=== PATIENT | male | born 1965 | race African-American/Black ===

== ENCOUNTER 2019-01-14 12:39 | Inpatient (IN) | payer OTHER ==
[2019-01-14 15:58] VITALS: BMI 24.7
[2019-01-14] MEDS ORDERED: MAG HYDROX/AL HYDROX/SIMETH 30 ML UNIT-DOSE CUP PO PRN (17:26)
[2019-01-14] MEDS ORDERED: MAGNESIUM HYDROX 2400MG/30ML ORAL SUSPENSION 30 ML CUP PO PRN (17:26)
[2019-01-14] MEDS ORDERED: IBUPROFEN 400 MG TABLET (FP) PO PRN (17:26)
[2019-01-14] MEDS ORDERED: MELATONIN 5 MG TABLETS PO PRN (17:26)
[2019-01-14] MEDS ORDERED: hydrOXYzine PAMOATE 25 MG CAPSULE (FP) PO PRN (17:26)
[2019-01-14] MEDS ORDERED: ACETAMINOPHEN 325 MG TABLET (FP) PO PRN ×2 (17:26)
[2019-01-14] MEDS ORDERED: BISMUTH SUBSALICYLATE 524 MG/30 ML UD PO PRN (17:26)
[2019-01-14] MEDS ORDERED: MENTHOL/PHENOL 1 EACH UD MM PRN (17:26)
[2019-01-14] MEDS ORDERED: MAGNESIUM CITRATE 300 ML BOTTLE PO PRN (17:26)
[2019-01-14] MEDS ORDERED: METHOCARBAMOL 500 MG TABLET PO PRN (17:26)
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
[2019-01-14] MEDS ORDERED: chlordiazePOXIDE HCL 10 MG CAPSULE PO PRN (18:03)
[2019-01-14] MEDS: valACYclovir HCL 500 MG TABLET (FP) PO SCH (19:02)
[2019-01-14] MEDS: OXYMETAZOLINE 0.05% NASAL SOLUTION 15 ML BOTTLE NS SCH (22:42)
[2019-01-14] MEDS: QUEtiapine FUMARATE 50 MG TABLET PO SCH (22:43)
[2019-01-14] MEDS: THIAMINE HCL 100 MG TABLET (FP) PO SCH (22:43)
[2019-01-14] MEDS: chlordiazePOXIDE HCL 25 MG CAPSULE PO SCH (22:43)
[2019-01-15] MEDS: chlordiazePOXIDE HCL 25 MG CAPSULE PO SCH ×2 (06:29→13:17)
[2019-01-15] MEDS: AMOX TR/POT CLAV 875MG/125MG TABLETS (FP) PO SCH ×2 (07:08→17:37)
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
[2019-01-15] MEDS: valACYclovir HCL 500 MG TABLET (FP) PO SCH (10:25)
[2019-01-15] MEDS: OXYMETAZOLINE 0.05% NASAL SOLUTION 15 ML BOTTLE NS SCH ×2 (10:25→22:27)
[2019-01-15] MEDS: PRENATAL VITAMINS W/ FOLIC ACID TABLET (FP) PO SCH (10:25)
[2019-01-15] MEDS: predniSONE 20 MG TABLET (UD) PO SCH (10:25)
[2019-01-15] MEDS: EMTRICITABINE/TENOFOV ALAFENAM (DESCOVY) TABLET PO SCH (10:26)
[2019-01-15] MEDS: RITONAVIR 100 MG TABLET PO SCH (10:26)
[2019-01-15] MEDS: DARUNAVIR ETHANOLATE 800 MG TAB PO SCH (10:27)
[2019-01-15] MEDS: busPIRone HCL 5 MG TABLET PO SCH (10:27)
[2019-01-15] MEDS: NICOTINE 14 MG/24 HOURS TOPICAL PATCH TD SCH (10:27)
[2019-01-15] MEDS: PSEUDOEPHEDRINE HCL 30 MG TABLET PO SCH (11:05)
[2019-01-15] MEDS ORDERED: PNEUMOC 13-VAL CONJ-DIP CRM/PF 0.5 ML DISP.SYRIN IM ONE (12:00)
[2019-01-15 12:30] LABS: ALBUMIN 3.1 g/dl (3.4-5.0); ALK PHOS 66 U/L (45-117); ANION GAP 6 MMOL/L (8-16); BILIRUBIN,TOTAL 0.6 mg/dL (0.2-1); BLOOD UREA NITROGEN 13 mg/dL (7-18); CALCIUM 9.1 mg/dL (8.5-10.1); CHLORIDE 105 mmol/L (98-107); CO2 27 mmol/L (21-32); CREATININE 0.7 mg/dL (0.55-1.3); GLUCOSE,RANDOM 110 mg/dL (74-106); POTASSIUM 3.6 mmol/L (3.5-5.1); SGOT/AST 52 U/L (15-37); SGPT/ALT 52 U/L (13-61); SODIUM 138 mmol/L (136-145); TOT PROT 7.7 g/dl (6.4-8.2)
[2019-01-15 12:44] LABS: HEMATOCRIT 41.4 % (35.4-49); HEMOGLOBIN 13.8 GM/dL (11.7-16.9); MCH 31.4 pg (25.7-33.7); MCHC 33.2 g/dl (32.0-35.9); MEAN CELL VOLUME 94.4 fl (80-96); MEAN PLT VOLUME 9.8 fl (7.5-11.1); PLATELET COUNT 187 K/MM3 (134-434); RBC 4.39 M/mm3 (4.00-5.60); RDW 14.7 % (11.9-15.9); WHITE BLOOD COUNT 10.4 K/mm3 (4.0-10.0)
[2019-01-15 16:02] LABS: EPI CELLS 28.1 /HPF (0-5/HPF); URINE APPEARANCE CLOUDY; URINE BACTERIA 7.1 /hpf (NEGATIVE); URINE BILIRUBIN 1+ (NEGATIVE); URINE CASTS 37 /lpf (0-8); URINE COLOR DK YELLOW; URINE GLUCOSE (UA) NEGATIVE (NEGATIVE); URINE KETONE TRACE (NEGATIVE); URINE LEUK ESTERASE 2+ (NEGATIVE); URINE NITRITE POSITIVE (NEGATIVE); URINE PROTEIN 1+ (NEGATIVE); URINE RBC 8 /hpf (0-4); URINE WBC 27 /hpf (0-5)
[2019-01-15] MEDS: QUEtiapine FUMARATE 50 MG TABLET PO SCH (22:25)
[2019-01-15] MEDS: chlordiazePOXIDE 5 MG CAPSULE PO SCH (22:25)
[2019-01-15] MEDS: THIAMINE HCL 100 MG TABLET (FP) PO SCH (22:25)
[2019-01-16] MEDS: chlordiazePOXIDE 5 MG CAPSULE PO SCH (06:09)
[2019-01-16] MEDS: AMOX TR/POT CLAV 875MG/125MG TABLETS (FP) PO SCH (08:15)
[2019-01-16 09:03] VITALS: BP 107/71; PULSE 73; TEMP 96.3
[2019-01-16] MEDS: OXYMETAZOLINE 0.05% NASAL SOLUTION 15 ML BOTTLE NS SCH (09:50)
[2019-01-16] MEDS: valACYclovir HCL 500 MG TABLET (FP) PO SCH (09:50)
[2019-01-16] MEDS: predniSONE 20 MG TABLET (UD) PO SCH (09:50)
[2019-01-16] MEDS: PRENATAL VITAMINS W/ FOLIC ACID TABLET (FP) PO SCH (09:50)
--- NOTE | 2019-01-16 09:50 | DS ---
[facility] Detox Discharge Summary Admission Date: 01/14/19 Discharge Date: 01/16/19 - History Present History: Alcohol Dependence Additional Comments: 53 years old male admitted on 01/14/19 for alcohol withdrawal stabilization feeling better today preferring to begin alcohol rehab today [facility] the [facility] scheduled to be discharged tomorrow, patient preferring to leave the detox facility today to prepare himself for alcohol rehab Pertinent Past History: bring in medication list and lab report to aftercare appointment strong recommend the patient return to [facility] admission - Physical Exam Results Vital Signs: Vital Signs Temperature 96.3 F L 01/16/19 09:02 Pulse Rate 73 01/16/19 09:02 Respiratory Rate 18 01/16/19 09:02 Blood Pressure 107/71 01/16/19 09:02 O2 Sat by Pulse Oximetry (%) Pertinent Admission Physical Exam Findings: alcohol withdrawal sx Laboratory Last Values WBC 10.4 K/mm3 (4.0-10.0) H 01/15/19 07:30 RBC 4.39 M/mm3 (4.00-5.60) 01/15/19 07:30 Hgb 13.8 GM/dL (11.7-16.9) 01/15/19 07:30 Hct 41.4 % (35.4-49) 01/15/19 07:30 MCV 94.4 fl (80-96) 01/15/19 07:30 MCH 31.4 pg (25.7-33.7) 01/15/19 07:30 MCHC 33.2 g/dl (32.0-35.9) 01/15/19 07:30 RDW 14.7 % (11.9-15.9) 01/15/19 07:30 Plt Count 187 K/MM3 (134-434) 01/15/19 07:30 MPV 9.8 fl (7.5-11.1) 01/15/19 07:30 Sodium 138 mmol/L (136-145) 01/15/19 07:30 Potassium 3.6 mmol/L (3.5-5.1) 01/15/19 07:30 Chloride 105 mmol/L (98-107) 01/15/19 07:30 Carbon Dioxide 27 mmol/L (21-32) 01/15/19 07:30 Anion Gap 6 MMOL/L (8-16) L 01/15/19 07:30 BUN 13 mg/dL (7-18) 01/15/19 07:30 Creatinine 0.7 mg/dL (0.55-1.3) 01/15/19 07:30 Creat Clearance w eGFR 118.43 (>60) 01/15/19 07:30 Random Glucose 110 mg/dL (74-106) H 01/15/19 07:30 Calcium 9.1 mg/dL (8.5-10.1) 01/15/19 07:30 Total Bilirubin 0.6 mg/dL (0.2-1) 01/15/19 07:30 AST 52 U/L (15-37) H 01/15/19 07:30 ALT 52 U/L (13-61) 01/15/19 07:30 Alkaline Phosphatase 66 U/L (45-117) 01/15/19 07:30 Total Protein 7.7 g/dl (6.4-8.2) 01/15/19 07:30 Albumin 3.1 g/dl (3.4-5.0) L 01/15/19 07:30 Urine Color Dk yellow 01/15/19 10:00 Urine Appearance Cloudy 01/15/19 10:00 Urine pH 6.0 (5.0-8.0) 01/15/19 10:00 Ur Specific [place] 1.023 (1.010-1.035) 01/15/19 10:00 Urine Protein 1+ (NEGATIVE) H 01/15/19 10:00 Urine Glucose (UA) Negative (NEGATIVE) 01/15/19 10:00 Urine Ketones Trace (NEGATIVE) H 01/15/19 10:00 Urine Blood Trace (NEGATIVE) 01/15/19 10:00 Urine Nitrite Positive (NEGATIVE) H 01/15/19 10:00 Urine Bilirubin 1+ (NEGATIVE) H 01/15/19 10:00 Urine Urobilinogen 2.0 mg/dL (0.2-1.0) 01/15/19 10:00 Ur Leukocyte Esterase 2+ (NEGATIVE) H 01/15/19 10:00 Urine WBC (Auto) 27 /hpf (0-5) 01/15/19 10:00 Urine RBC (Auto) 8 /hpf (0-4) 01/15/19 10:00 Urine Casts (Auto) 37 /lpf (0-8) 01/15/19 10:00 U Pathogenic Cast Auto None /lpf (NEGATIVE) 01/15/19 10:00 U Epithel Cells (Auto) 28.1 /HPF (0-5/HPF) 01/15/19 10:00 U Sm Round Cell (Auto) None 01/15/19 10:00 Urine Bacteria (Auto) 7.1 /hpf (NEGATIVE) 01/15/19 10:00 RPR Titer Nonreactive (NONREACTIVE) 01/15/19 07:30 lab noted patient agrees to return to his infectious disease specialist for augmentin - Treatment Hospital Course: Detox Protocol Followed, Detoxed Safely, Responded well, Discharged Condition Good, Rehab Referral Accepted Patient has Accepted a Rehab Referral to: infectious disease specialist - Medication Discharge Medications: Ambulatory Orders Quetiapine Fumarate [Seroquel -] 50 mg PO HS 10/27/12 Valacyclovir HCl [Valtrex -] 1 grams PO DAILY 10/27/12 Acetaminophen [Tylenol] 500 mg PO TID 01/14/19 Ascorbate Calcium [Vitamin C] 500 mg PO DAILY 01/14/19 Augmentin 875-125 Tablet 1 tablet PO BID 01/14/19 Buspirone HCl [Buspar -] 5 mg PO BID 01/14/19 Daily Vitamin Formula-Iron Tab 1 tablet PO DAILY 01/14/19 Darunavir Ethanolate [Prezista] 800 mg PO DAILY 01/14/19 Emtricitabine/Tenofov Alafenam [Descovy 200-25 mg Tablet (Nf)] 1 mg PO DAILY 03/28 Ibuprofen 600 mg PO PRN 01/14/19 Omeprazole 20 mg PO BID 01/14/19 Prednisolone 20 mg PO DAILY 01/14/19 Pseudoephedrine HCl [Sudogest] 30 mg PO 01/14/19 Ritonavir [Norvir -] 100 mg PO DAILY 01/14/19 - Diagnosis (1) Alcohol dependence with uncomplicated withdrawal Status: Acute (2) Cellulitis Status: Acute Qualifiers: Site of cellulitis: face Qualified Code(s): L03.211 - Cellulitis of face (3) HIV (human immunodeficiency virus infection) Status: Chronic Qualifiers: HIV symptom status: asymptomatic Qualified Code(s): Z21 - Asymptomatic human immunodeficiency virus [HIV] infection status (4) Positive PPD Status: Resolved - AMA Did Patient Leave Against Medical Advice: No
[2019-01-16] MEDS: busPIRone HCL 5 MG TABLET PO SCH (09:51)
[2019-01-16] MEDS: DARUNAVIR ETHANOLATE 800 MG TAB PO SCH (09:51)
[2019-01-16] MEDS: RITONAVIR 100 MG TABLET PO SCH (09:51)
[2019-01-16] MEDS: EMTRICITABINE/TENOFOV ALAFENAM (DESCOVY) TABLET PO SCH (09:52)
[2019-01-16] MEDS: NICOTINE 14 MG/24 HOURS TOPICAL PATCH TD SCH (09:52)
[2019-01-16] MEDS ORDERED: chlordiazePOXIDE HCL 10 MG CAPSULE PO PRN (21:00)
[2019-01-16] MEDS ORDERED: chlordiazePOXIDE HCL 10 MG CAPSULE PO SCH (21:00)
== END 2019-01-16 10:11 | disposition home or self-care (01) | DRG 775 ==
LOC: YASAS 12:39 → Y3N 18:30
PROVIDERS: ADMIT Surgery; ATTEND Surgery
PROC: HZ2ZZZZ Detoxification Services for Substance Abuse Treatment (ICD-10-PCS; principal; 2019-01-14)
DX: F10.230 Alcohol dependence with withdrawal, uncomplicated (principal); Z21 Asymptomatic human immunodeficiency virus [HIV] infection status; L03.211 Cellulitis of face; R76.11 Nonspecific reaction to tuberculin skin test without active tuberculosis; S05.8X2A Other injuries of left eye and orbit, initial encounter
CPT/HCPCS: 36415; 80053; 81003; 85027; 86593; 90670

== ENCOUNTER 2024-06-02 16:29 | Inpatient (IN) | payer OTHER ==
[2024-06-02 17:33] VITALS: BMI 24.3
[2024-06-02] MEDS ORDERED: NALOXONE (NARCAN) HCL 4 MG/0.1 ML SPRAY NS PRN (19:15)
[2024-06-02] MEDS ORDERED: POLYETHYLENE GLYCOL (HEALTHYLAX) 3350 17 GM PACKET PO PRN (19:15)
[2024-06-02] MEDS ORDERED: NICOTINE POLACRILEX 2 MG GUM BUC PRN (19:15)
[2024-06-02] MEDS ORDERED: IBUPROFEN 400 MG TABLET (FP) PO PRN (19:15)
[2024-06-02] MEDS ORDERED: guaiFENesin 600 MG TABLET.ER (FP) PO PRN (19:15)
[2024-06-02] MEDS ORDERED: LOPERAMIDE HCL 2 MG CAPSULE PO PRN (19:15)
[2024-06-02] MEDS ORDERED: IBUPROFEN 600 MG TABLET (FP) PO PRN (19:15)
[2024-06-02] MEDS ORDERED: MAGNESIUM HYDROX 2400MG/30ML ORAL SUSPENSION 30 ML CUP PO PRN (19:15)
[2024-06-02] MEDS ORDERED: BENZOCAINE/MENTHOL (CHLORASEPTIC ) LOZENGE MM PRN (19:15)
[2024-06-02] MEDS ORDERED: BENZONATATE 200 MG CAPSULE PO PRN (19:15)
[2024-06-02] MEDS ORDERED: BISMUTH SUBSALICYLATE 524 MG/30 ML PO PRN (19:15)
[2024-06-02] MEDS ORDERED: ONDANSETRON *ODT* 4 MG TABLET SL PRN (19:15)
[2024-06-02] MEDS ORDERED: ACETAMINOPHEN 325 MG TABLET (FP) PO PRN (19:15)
[2024-06-02] MEDS ORDERED: DICYCLOMINE HCL 10 MG CAPSULE PO PRN (19:15)
[2024-06-02] MEDS ORDERED: NALOXONE HCL 0.4 MG/ML VIAL IM PRN (19:15)
[2024-06-02] MEDS ORDERED: MAG HYDROX/AL HYDROX/SIMETH 30 ML UNIT-DOSE CUP PO PRN (19:15)
[2024-06-02] MEDS: THIAMINE 100 MG TABLET PO SCH (21:16)
[2024-06-02] MEDS: METHOCARBAMOL 500 MG TABLET PO PRN (21:16)
[2024-06-02] MEDS: hydrOXYzine PAMOATE 25 MG CAPSULE (FP) PO PRN (21:16)
[2024-06-02] MEDS: MELATONIN 5 MG TABLETS PO SCH (21:16)
[2024-06-03] MEDS: PRENATAL VITAMINS W/ FOLIC ACID TABLET (FP) PO SCH (09:03)
[2024-06-03] MEDS: NICOTINE 21 MG/24 HOURS TOPICAL PATCH TD SCH (09:05)
[2024-06-03 13:49] LABS: HEMATOCRIT 44.6 % (35.4-49); HEMOGLOBIN 14.8 GM/dL (11.7-16.9); MCH 30.9 pg (25.7-33.7); MCHC 33.3 g/dl (32.0-35.9); MEAN CELL VOLUME 92.8 fl (80-96); MEAN PLT VOLUME 8.9 fl (7.5-11.1); PLATELET COUNT 214 10^3/uL (134-434); WHITE BLOOD COUNT 7.3 K/mm3 (4.0-10.0)
[2024-06-03 13:55] LABS: CHLORIDE 109 mmol/L (98-107); POTASSIUM 3.9 mmol/L (3.5-5.1); SODIUM 143 mmol/L (136-145)
[2024-06-03 13:58] LABS: ALBUMIN 3.6 g/dl (3.4-5.0); ANION GAP 3 mmol/L (4-13); CALCIUM 9.4 mg/dL (8.5-10.1); CO2 31 mmol/L (21-32); GLUCOSE,RANDOM 87 mg/dL (74-106)
[2024-06-03 13:59] LABS: BLOOD UREA NITROGEN 15.4 mg/dL (7-18)
[2024-06-03 14:01] LABS: CREATININE 0.8 mg/dL (0.55-1.3)
[2024-06-03 14:02] LABS: SGOT/AST 14 U/L (15-37); SGPT/ALT 15 U/L (13-61)
[2024-06-03 14:03] LABS: BILIRUBIN,TOTAL 0.3 mg/dL (0.2-1); TOT PROT 7.8 g/dl (6.4-8.2)
[2024-06-03 14:04] LABS: ALK PHOS 68 U/L (45-117)
[2024-06-03] MEDS: BICTEGRAV/EMTRICIT/TENOFOV (BIKTARVY) 50-200-25 MG TABLET PO SCH (15:47)
[2024-06-03] MEDS: valACYclovir HCL 500 MG TABLET (FP) PO SCH (15:47)
[2024-06-03] MEDS: QUEtiapine FUMARATE 50 MG TABLET PO SCH (21:49)
[2024-06-04] MEDS ORDERED: RITONAVIR 100 MG TABLET PO SCH (12:15)
[2024-06-04] MEDS ORDERED: EMTRICITABINE/TENOFOV ALAFENAM (DESCOVY) TABLET PO SCH (12:15)
[2024-06-04] MEDS ORDERED: DARUNAVIR ETHANOLATE 800 MG TAB PO SCH (12:15)
[2024-06-04] MEDS: PANTOPRAZOLE 20 MG TABLET PO SCH (12:29)
[2024-06-04 12:43] VITALS: TEMP 97.6
[2024-06-04 17:06] VITALS: BP 135/84; PULSE 68; RESP 18
== END 2024-06-04 18:47 | disposition other institution (70) | DRG 774 ==
LOC: YASAS 16:29 → Y3N 19:26
PROVIDERS: ADMIT Allergy & Immunology; ATTEND Surgery
PROC: HZ2ZZZZ Detoxification Services for Substance Abuse Treatment (ICD-10-PCS; principal; 2024-06-02)
DX: F10.230 Alcohol dependence with withdrawal, uncomplicated (principal); F14.20 Cocaine dependence, uncomplicated; F12.20 Cannabis dependence, uncomplicated; F17.210 Nicotine dependence, cigarettes, uncomplicated; F31.9 Bipolar disorder, unspecified; F41.9 Anxiety disorder, unspecified; Z21 Asymptomatic human immunodeficiency virus [HIV] infection status; Z79.899 Other long term (current) drug therapy; Z86.11 Personal history of tuberculosis
CPT/HCPCS: 36415; 71046-TC-FY; 80053; 80305; 80307; 85027; 86593; 86780; 87811; 93005; 93010

== ENCOUNTER 2024-06-04 19:19 | Inpatient (IN) | payer OTHER ==
[2024-06-05] MEDS ORDERED: IBUPROFEN 400 MG TABLET (FP) PO PRN (01:09)
[2024-06-05] MEDS ORDERED: NALOXONE HCL 0.4 MG/ML VIAL IVPUSH PRN (01:09)
[2024-06-05] MEDS ORDERED: guaiFENesin 600 MG TABLET.ER (FP) PO PRN (01:09)
[2024-06-05] MEDS ORDERED: IBUPROFEN 600 MG TABLET (FP) PO PRN (01:09)
[2024-06-05] MEDS ORDERED: BENZOCAINE/MENTHOL (CHLORASEPTIC ) LOZENGE MM PRN (01:09)
[2024-06-05] MEDS ORDERED: METHOCARBAMOL 500 MG TABLET PO PRN (01:09)
[2024-06-05] MEDS ORDERED: NALOXONE (NARCAN) HCL 4 MG/0.1 ML SPRAY NS PRN (01:09)
[2024-06-05] MEDS ORDERED: BENZONATATE 200 MG CAPSULE PO PRN (01:09)
[2024-06-05] MEDS ORDERED: MAGNESIUM HYDROX 2400MG/30ML ORAL SUSPENSION 30 ML CUP PO PRN (01:09)
[2024-06-05] MEDS ORDERED: LOPERAMIDE HCL 2 MG CAPSULE PO PRN (01:09)
[2024-06-05] MEDS: PRENATAL VITAMINS W/ FOLIC ACID TABLET (FP) PO SCH (10:17)
[2024-06-05] MEDS: NICOTINE 14 MG/24 HOURS TOPICAL PATCH TD SCH ×2 (10:17→17:05)
[2024-06-05] MEDS: NALTREXONE HCL 50 MG TABLET PO ONE (17:04)
[2024-06-05] MEDS: BICTEGRAV/EMTRICIT/TENOFOV (BIKTARVY) 50-200-25 MG TABLET PO SCH (17:05)
[2024-06-05] MEDS: THIAMINE 100 MG TABLET PO SCH (21:45)
[2024-06-05] MEDS: PANTOPRAZOLE 20 MG TABLET PO SCH (21:45)
[2024-06-05] MEDS: MELATONIN 5 MG TABLETS PO SCH (21:45)
[2024-06-05] MEDS: BACLOFEN 10 MG TABLET (FP) PO SCH (21:45)
[2024-06-06] MEDS: NALTREXONE HCL 50 MG TABLET PO SCH (10:08)
[2024-06-06] MEDS: valACYclovir HCL 500 MG TABLET (FP) PO SCH (10:10)
[2024-06-06] MEDS: QUEtiapine FUMARATE 50 MG TABLET PO SCH (21:58)
[2024-06-07] MEDS: ACETAMINOPHEN 325 MG TABLET (FP) PO PRN (16:54)
[2024-06-12] MEDS: BICTEGRAV/EMTRICIT/TENOFOV (BIKTARVY) 50-200-25 MG TABLET PO SCH (06:07)
[2024-06-13] MEDS: NICOTINE POLACRILEX 2 MG GUM BC PRN (10:19)
[2024-06-13] MEDS: BACLOFEN 10 MG TABLET (FP) PO SCH (13:10)
[2024-06-15] MEDS: NICOTINE POLACRILEX 4 MG GUM BUC PRN (10:24)
[2024-06-16] MEDS: NICOTINE 21 MG/24 HOURS TOPICAL PATCH TD SCH (10:14)
[2024-06-18] MEDS: hydrOXYzine PAMOATE 25 MG CAPSULE (FP) PO PRN (21:45)
[2024-06-19] MEDS: BACLOFEN 10 MG TABLET (FP) PO SCH (21:34)
[2024-06-19] MEDS: POLYETHYLENE GLYCOL (HEALTHYLAX) 3350 17 GM PACKET PO PRN (21:37)
[2024-06-20 06:51] VITALS: RESP 18
[2024-06-21] MEDS: MAG HYDROX/AL HYDROX/SIMETH 30 ML UNIT-DOSE CUP PO PRN (06:44)
[2024-06-23 07:14] VITALS: BP 132/85; PULSE 71; TEMP 97.9
[2024-06-23] MEDS: NALOXONE (NYS OPIOID OVERDOSE PROGRAM) 4 MG/0.1 ML SPRAY NS PRN (09:33)
[2024-06-23] MEDS: NALTREXONE MICROSPHERES (VIVITROL) 380 MG DISP.SYRIN IM ONE (09:55)
[2024-06-24] MEDS ORDERED: NALTREXONE MICROSPHERES (VIVITROL) 380 MG DISP.SYRIN IM ONE ×2 (10:00)
== END 2024-06-23 10:40 | disposition home or self-care (01) | DRG 772 ==
LOC: YASAS 19:19 → Y5N 19:27
PROVIDERS: ADMIT Psychiatry & Neurology Pain Medicine; ATTEND Psychiatry & Neurology Pain Medicine
PROC: HZ42ZZZ Group Counseling for Substance Abuse Treatment, Cognitive-Behavioral (ICD-10-PCS; principal; 2024-06-04)
DX: F10.20 Alcohol dependence, uncomplicated (principal); F14.20 Cocaine dependence, uncomplicated; F12.20 Cannabis dependence, uncomplicated; F17.210 Nicotine dependence, cigarettes, uncomplicated; F31.9 Bipolar disorder, unspecified; F41.9 Anxiety disorder, unspecified; Z21 Asymptomatic human immunodeficiency virus [HIV] infection status; G47.00 Insomnia, unspecified; R76.11 Nonspecific reaction to tuberculin skin test without active tuberculosis; Z79.899 Other long term (current) drug therapy
CPT/HCPCS: 36415; 86803; J0475; J2315